=== PATIENT | female | born 1985 | race Caucasian/White ===

== ENCOUNTER 2019-09-26 18:00 | Inpatient (IN) | payer BC ==
[~2019-09-26 18:00] MED LIST: Bupivacaine PF 0.5% 30 ML VIAL ONE; Bupivacaine/Epinephrine 0.25% 30 ML VIAL ONE
[2019-09-26 19:32] VITALS: BMI 29.2
[2019-09-26] MEDS ORDERED: Butorphanol Tartrate 1 MG/ML VIAL SLOW IVP PRN (19:32)
[2019-09-26] MEDS ORDERED: Promethazine HCl 25 MG/ML VIAL IM PRN (19:32)
[2019-09-26] MEDS ORDERED: Lidocaine 1% (PF) 30 ML VIAL SC PRN (19:32)
[2019-09-26] MEDS ORDERED: Acetaminophen 500 MG TAB PO PRN (19:32)
[2019-09-26] MEDS ORDERED: NS w/ Oxytocin 10 units 500 ML IV SCH ×2 (19:32)
[2019-09-26] MEDS ORDERED: Ibuprofen 800 MG TAB PO PRN (19:32)
[2019-09-26] MEDS ORDERED: hydrALAZINE 20 MG/ML VIAL SLOW IVP PRN (19:32)
[2019-09-26] MEDS ORDERED: NS / Oxytocin 40 units/1000ml 1,000 ML IV PRN (19:32)
[2019-09-26] MEDS ORDERED: Ondansetron PF 4 MG/2 ML Vial IVP PRN (19:32)
[2019-09-26] MEDS: Lactated Ringer's 1,000 ML IV SCH ×2 (19:43→20:13)
[2019-09-26] MEDS ORDERED: Misoprostol 100 MCG TAB VAG SCH (20:00)
[2019-09-26 20:01] LABS: Hemoglobin 11.8 g/dL (12.0-16.0); Mean Corpuscular HGB CONC 34.2 g/dL (32.0-36.0); Mean Corpuscular Hemoglobin 33.3 pg (27.0-31.0); Mean Corpuscular Volume 97.4 fL (78.0-98.0); Platelet Count 344 thou/uL (130-400); RBC Distribution Width 12.6 % (11.5-14.5); Red Blood Cell (RBC) Count 3.54 mill/uL (4.20-5.40); White Blood Cell (WBC) Count 9.9 thou/uL (4.8-10.8)
[2019-09-26 20:48] LABS: Syphilis Antibody Nonreactive (Nonreactive); Syphilis Antibody Index 0.03 S/CO (<1.00 Non-Reactive)
[2019-09-26 22:43] LABS: HBSAg Index 0.87 S/CO (0-0.99); Hep B Surf Ag Non-Reactive S/CO (NonReactive)
[2019-09-27] MEDS: Misoprostol 100 MCG TAB PO SCH ×2 (01:26→17:45)
[2019-09-27] MEDS ORDERED: Fentanyl 4 mcg/Bup 0.1% Cadd 100 ML ONE (08:47)
[2019-09-27] MEDS ORDERED: diphenhydrAMINE 50 MG/ML VIAL IVP PRN ×2 (10:23→13:46)
[2019-09-27] MEDS ORDERED: Acetaminophen 325 MG TAB PO PRN ×2 (10:23→15:54)
[2019-09-27] MEDS ORDERED: Lactated Ringer's 500 ML IV PRN (10:23)
[2019-09-27] MEDS ORDERED: Ondansetron PF 4 MG/2 ML Vial IVP PRN ×2 (10:23→13:46)
[2019-09-27] MEDS ORDERED: Naloxone HCl 0.4 mg/ml Vial IVP PRN ×4 (10:23→13:46)
[2019-09-27] MEDS ORDERED: Promethazine HCl 25 MG/ML VIAL IM PRN ×2 (10:23→13:46)
[2019-09-27] MEDS ORDERED: EPHEDRINE 25 MG/5 ML SYRINGE SLOW IVP PRN (10:23)
[2019-09-27] MEDS ORDERED: Fentanyl 4 mcg/Bupivacaine 0.1% Cassette 100 ML EPIDURAL SCH (10:30)
[2019-09-27] MEDS ORDERED: Communication Order-Pharmacy FS SCH ×2 (10:30→14:00)
--- NOTE | 2019-09-27 10:30 | PDOC.LDHP ---
Labor and Delivery H&P Chief complaint: scheduled induction HPI: IOL for IUGR Due date: 10/07/19 Grav: 1 Para: 0 Current complications: IUGR Abnormal US findings: No Current medications: pre- vitamins Previous surgical history: none, other (breast aug, LE pins) Allergies/Adverse Reactions: Allergies Allergy/AdvReac Type Severity Reaction Status Date / Time hydrocodone bitartrate Allergy VOMITING Verified 09/26/19 19:22 [From [employer]] Social history: none - Physical Exam Vital signs reviewed and normal: yes General: NAD Heart: RRR Lungs: CTAB Abdomen: gravid FHT: category 2, acceleration absent - Vaginal Exam cm dilated: 1 Effacement: 75% Station: -2 - OB Labs Blood type: O RH: positive Antibody Screen: negative HIV: negative RPR: negative HEPSAg: negative 1 hour GCT: negative Rubella: immune - Assessment L&D Assessment: medically indicated induction (IUGR) - Plan Plan: admit to L&D, cervical ripening, informed consent obtained, anesthesia consult for pain management -: IOL or IUGR. Cervical ripening w cytotec overnight. Cook balloon placement attempted but not able to keep inside the os, AROM perfomed @ 2cm w clear fluid. We discussed close observation of status with intermittent late decelerations noted and periods of minimal variability. CS for NRFHT remote from delivery and other indications reviewed and patient agrees with plan of care.
[2019-09-27] MEDS ORDERED: Ondansetron PF 4 MG/2 ML Vial ONE (12:50)
[2019-09-27] MEDS ORDERED: MORPHINE 5 MG/10 ML PF VIAL ONE (12:50)
[2019-09-27] MEDS ORDERED: Oxytocin 10 UNITS/ML VIAL ONE (12:50)
--- NOTE | 2019-09-27 12:57 | PDOC.LDPN ---
Labor & Delivery Progress Note - Subjective Subjective: painful contractions - Objective Vital signs reviewed and normal: yes General: resting FHT: late decelerations (with decrease variability) Plan: other -: Discussed recurrent late decelerations, remote from delivery, and recommendation for 1CS. Pt agrees with plan of care.
[2019-09-27] MEDS ORDERED: Azithromycin 500 MG in Sodium Chloride 0.9% 250 ML 250 ML IVPB SCH (13:00)
[2019-09-27] MEDS ORDERED: Bicitra 30 ML UDCUP PO SCH (13:00)
[2019-09-27] MEDS ORDERED: CEFAZOLIN 2 GM in Premix Bag 1 BAG IVPB SCH (13:00)
[2019-09-27] MEDS ORDERED: PHENYLEPHRINE-NS 100 MCG/ML 10 ML SYRINGE ONE (13:29)
[2019-09-27] MEDS ORDERED: HYDROmorphone 2 MG/ML VIAL SLOW IVP PRN (13:45)
[2019-09-27] MEDS ORDERED: Ondansetron HCl/PF 4 MG/2 ML Vial IVP PRN (13:45)
[2019-09-27] MEDS ORDERED: Ketorolac Tromethamine 30 MG/ML VIAL IVP SCH (13:45)
[2019-09-27] MEDS ORDERED: Meperidine HCl/PF 25 MG/ML VIAL SLOW IVP PRN (13:45)
[2019-09-27] MEDS ORDERED: L&D-Morphine 4 MG/ML VIAL SLOW IVP PRN (13:45)
[2019-09-27] MEDS ORDERED: Promethazine HCl 25 MG SUPP PR PRN (13:46)
[2019-09-27] MEDS ORDERED: Naloxone HCl 0.4 mg/ml Vial IV PRN (13:46)
--- NOTE | 2019-09-27 15:15 | OP ---
DATE OF PROCEDURE: 09/27/2019 PREOPERATIVE DIAGNOSES: 1. A 34-year-old G1 at 38 weeks and 4 days. 2. Intrauterine growth restriction. 3. Nonreassuring heart tones, remote from delivery. POSTOPERATIVE DIAGNOSES: 1. A 34-year-old G1 at 38 weeks and 4 days. 2. Intrauterine growth restriction. 3. Nonreassuring heart tones, remote from delivery. PROCEDURE PERFORMED: Primary low-transverse section without extension. REPAIR TECH: Dr. Hawkins, Sampling Theory Teacher. COMPLICATIONS: None. ESTIMATED BLOOD LOSS: 300 mL. ANESTHESIOLOGIST: Dr. Talamantes. ANESTHESIA: Epidural. FINDINGS: 1. Low transverse hysterotomy without extension. 2. Female infant, Apgars 8 and 9, weight 6 pounds 6 ounces to Nursery. 3. Normal-appearing uterus, tubes, and ovaries bilaterally. 4. Calcified-appearing placenta, delivered intact. 5. Fundus firm. 6. Hysterotomy was hemostatic after closure. DESCRIPTION OF PROCEDURE: The patient was taken back to the OR with IV fluids running. Once she was in the OR, she was placed in dorsal supine position and epidural anesthesia had previously been placed as well as a Tejeda catheter, which had previously been placed. The patient was given 2 g of Ancef and azithromycin 500 mg. The abdomen was prepped and draped in normal fashion for section. The surgeons were gowned and gloved. The abdomen was tested and anesthesia was found to be adequate. A Pfannenstiel skin incision was made with a scalpel. The skin incision was carried down through the subcutaneous tissue to the fascia. Once the fascia was reached, it was incised in the midline and extended superolaterally using curved Vásquez scissors. Kd clamps were placed at the superior border of the fascia, which was sharply and bluntly dissected off the rectus abdominis muscles in a cephalad direction. In similar fashion, they were placed at the inferior border of the fascia, which was dissected down towards the level of pubic symphysis. Rectus muscles were bluntly in the midline. The Fredrick O retractor was placed in the peritoneal cavity for retraction, visualization, and protection of the wound. A bladder flap was created using Metzenbaum scissors and the bladder was dissected away from the primary site. A low-transverse hysterotomy was made with a scalpel. Hysterotomy was bluntly entered and stretched laterally. Amniotomy was performed with clear fluid noted. The infant was delivered through the hysterotomy from a vertex presentation. The nose and mouth were suctioned. The cord was doubly clamped and cut. The was handed off to special care nurse in attendance. Cord blood was collected. The placenta was delivered. The uterus was exteriorized, massaged firm, and cleared of clot and debris. The uterus was returned to the abdominal cavity. Hysterotomy was closed with Monocryl suture in a running locked fashion. After the hysterotomy was closed, it was inspected and a small area of bleeding was noted at the left corner. Hemostasis was achieved after a [id number] stitch was placed at this corner. After hemostasis was assured, the hysterotomy and paracolic gutters were irrigated and suction dried. The hysterotomy was inspected again with no bleeding noted. The retractor was removed from the abdominal cavity. The rectus muscles and fascia were inspected with no areas of bleeding noted. Rectus fascia was reapproximated with PDS suture from corner to corner in a running fashion. Subcutaneous tissue was irrigated and dried. Any small areas of bleeding were controlled with Bovie cauterization. Subcutaneous tissue was reapproximated with plain gut suture. The skin was closed with 4-0 Monocryl and dressed with Dermabond dressing. The patient tolerated the procedure well. The counts were correct. Job ID: [id number]
[2019-09-27] MEDS ORDERED: hydrALAZINE 20 MG/ML VIAL SLOW IVP PRN (15:54)
[2019-09-27] MEDS: Ketorolac Tromethamine 30 MG/ML VIAL IVP PRN (16:59)
[2019-09-28] MEDS ORDERED: Sodium Chloride 0.9% 10 ML ONE (00:26)
[2019-09-28] MEDS: Ketorolac Tromethamine 30 MG/ML VIAL IVP PRN (00:27)
[2019-09-28] MEDS ORDERED: Acetaminophen/Codeine 30-300mg Tablet PO PRN (02:01)
[2019-09-28] MEDS: Acetaminophen/Codeine 30-300mg Tablet PO PRN ×4 (05:58→18:45)
[2019-09-28 06:19] LABS: Hemoglobin 9.8 g/dL (12.0-16.0); Mean Corpuscular HGB CONC 33.5 g/dL (32.0-36.0); Mean Corpuscular Hemoglobin 32.1 pg (27.0-31.0); Mean Corpuscular Volume 95.8 fL (78.0-98.0); Mean Platelet Volume 8.2 fL (7.4-10.4); Platelet Count 290 thou/uL (130-400); RBC Distribution Width 12.7 % (11.5-14.5); Red Blood Cell (RBC) Count 3.05 mill/uL (4.20-5.40); White Blood Cell (WBC) Count 15.5 thou/uL (4.8-10.8)
--- NOTE | 2019-09-28 08:33 | PDOC.PP ---
Post Progress Note Post Day #: 1 Subjective: minimal pain and minimal lochia PO intake tolerated: yes Ambulation: yes Vital Signs (12 hours) Temp Pulse Resp BP Pulse Ox 09/28/19 08:26 98.4 F 81 20 99/57 L 98 09/28/19 00:25 99.5 F 77 18 103/59 L 98 Weight Weight 192 lb - Physical Examination General: NAD Respiratory: non-labored breathing Skin: CS incision dry & intact Psychiatric: A&Ox3, normal affect Result Diagrams: 09/28/19 05:51 Additional Labs: Post Labs Blood Type O POSITIVE 09/26/19 20:14 Hep Bs Antigen Non-Reactive S/CO (NonReactive) 09/26/19 19:52 (1) delivery delivered Code(s): O82 - ENCOUNTER FOR DELIVERY WITHOUT INDICATION Status: Acute - Assessment/Plan POD1, doing well, no concerns.
[2019-09-28] MEDS ORDERED: Adacel (T-DAP) 0.5 ML SYRINGE IM ONE (09:00)
[2019-09-28] MEDS: Simethicone Chewable 80 MG TAB PO PRN ×2 (10:00→14:39)
[2019-09-28] MEDS: Prenatal Vitamin 1 TAB PO SCH (10:00)
[2019-09-28] MEDS: Docusate Calcium (SURFAK) 240 MG CAP PO SCH ×2 (10:00→21:35)
[2019-09-28] MEDS: Ibuprofen 800 MG TAB PO SCH ×2 (14:39→21:35)
[2019-09-29] MEDS: Acetaminophen/Codeine 30-300mg Tablet PO PRN (02:36)
[2019-09-29] MEDS: Ibuprofen 800 MG TAB PO SCH (06:04)
[2019-09-29 08:13] VITALS: BP 102/50; TEMP 99.1
--- NOTE | 2019-09-29 08:19 | PDOC.PP ---
Post Progress Note Post Day #: 2 Subjective: doing well, minimal discomfort, tolerating tylenol 3 without difficulty PO intake tolerated: yes Flatus: yes Ambulation: yes Vital Signs (12 hours) Temp Pulse Resp BP BP Pulse Ox 09/29/19 08:12 99.1 F 61 20 102/50 L 99 09/29/19 03:15 98.4 F 75 18 100/52 L 98 09/28/19 20:37 98.8 F 68 16 93/57 L 98 Weight Weight 192 lb - Physical Examination General: NAD Respiratory: non-labored breathing Abdominal: no distention Skin: CS incision dry & intact Neurological: no gross focal deficits Psychiatric: A&Ox3, normal affect Result Diagrams: 09/28/19 05:51 Additional Labs: Post Labs Blood Type O POSITIVE 09/26/19 20:14 Hep Bs Antigen Non-Reactive S/CO (NonReactive) 09/26/19 19:52 (1) delivery delivered Code(s): O82 - ENCOUNTER FOR DELIVERY WITHOUT INDICATION Status: Acute - Assessment/Plan POD2 doing well, post op meds reviewed.
[2019-09-29] MEDS: Prenatal Vitamin 1 TAB PO SCH (09:14)
[2019-09-29] MEDS: Docusate Calcium (SURFAK) 240 MG CAP PO SCH (09:14)
[2019-09-29] MEDS: Simethicone Chewable 80 MG TAB PO PRN (09:14)
== END 2019-09-29 11:00 | disposition home or self-care (01) | DRG 788 ==
LOC: L&D 18:46 → 3SW 09-27 16:45
PROVIDERS: ADMIT Obstetrics & Gynecology; ATTEND Obstetrics & Gynecology
PROC: 10D00Z1 Extraction of Products of Conception, Low, Open Approach (ICD-10-PCS; principal; 2019-09-28)
DX: O36.5930 Maternal care for other known or suspected poor fetal growth, third trimester, not applicable or unspecified (principal); Z3A.38 38 weeks gestation of pregnancy; Z37.0 Single live birth; O76 Abnormality in fetal heart rate and rhythm complicating labor and delivery
CPT/HCPCS: 36415; 51702; 85027; 86780; 86850; 86900; 86901; 87340; J0595; J0690; J1885; J2274; J2405; J2590; S0020

== ENCOUNTER 2021-06-28 15:01 | Outpatient (CLI) | payer BC | END 2021-06-28 15:02 | disposition home or self-care (01) | LOC: BICULT 15:01 | PROVIDERS: ATTEND Physician Assistant | DX: E01.0 Iodine-deficiency related diffuse (endemic) goiter (principal); R53.83 Other fatigue; L65.9 Nonscarring hair loss, unspecified; E04.1 Nontoxic single thyroid nodule | CPT/HCPCS: 76536 ==

== ENCOUNTER 2022-07-04 10:18 | Day surgery (SDC) | payer BC ==
[2022-07-03 09:52] VITALS: BMI 25.0
[2022-07-04] MEDS ORDERED: EPINEPHrine 1 MG/ML AMP ONE (11:56)
[2022-07-04] MEDS ORDERED: Lidocaine 1% (PF) 30 ML VIAL ONE (11:56)
[2022-07-04] MEDS ORDERED: Fentanyl 250 MCG/5 ML VIAL ONE (12:04)
[2022-07-04] MEDS ORDERED: Rocuronium Bromide 10 MG/ML (10ML VIAL) ONE (12:28)
[2022-07-04] MEDS ORDERED: Lidocaine 1% PF 5 ML VIAL ONE (12:28)
[2022-07-04] MEDS ORDERED: Ondansetron PF 4 MG/2 ML Vial ONE (12:28)
[2022-07-04] MEDS ORDERED: PHENYLEPHRINE-NS 100 MCG/ML 10 ML SYRINGE ONE (12:28)
[2022-07-04] MEDS ORDERED: Dexamethasone 20 MG/5 ML VIAL ONE (12:28)
[2022-07-04] MEDS ORDERED: PROPOFOL 200 MG/20 ML VIAL ONE (12:28)
[2022-07-04] MEDS ORDERED: ePHEDrine 50 MG/ML VIAL ONE (12:28)
[2022-07-04] MEDS ORDERED: Fentanyl 100 MCG/2 ML VIAL ONE (14:09)
[2022-07-04] MEDS ORDERED: traMADol HCl 50 MG TAB ONE (14:47)
== END 2022-07-04 15:08 | disposition home or self-care (01) ==
LOC: SDC 10:18
PROVIDERS: ATTEND Specialist
PROC: 0GTH0ZZ Resection of Right Thyroid Gland Lobe, Open Approach (ICD-10-PCS; principal; 2022-07-04)
DX: E04.1 Nontoxic single thyroid nodule (principal); M54.2 Cervicalgia; G43.909 Migraine, unspecified, not intractable, without status migrainosus; Z79.85 Long-term (current) use of injectable non-insulin antidiabetic drugs; Z79.899 Other long term (current) drug therapy; Z88.0 Allergy status to penicillin; Z88.5 Allergy status to narcotic agent
CPT/HCPCS: 88307; 88331; C1776; C1889; J0171; J2001; J3010

== ENCOUNTER 2025-03-18 07:47 | Outpatient (CLI) | payer BC ==
[2025-03-18] MEDS ORDERED: Iopamidol 370 76% 100 ML VIAL ONE (11:20)
== END 2025-03-18 07:48 | disposition home or self-care (01) ==
LOC: CT 07:47
PROVIDERS: ATTEND Physician Assistant
DX: R59.0 Localized enlarged lymph nodes (principal); Z98.890 Other specified postprocedural states
CPT/HCPCS: 70491; Q9967